=== PATIENT | female | born 1950 | race Caucasian/White ===

== ENCOUNTER 2019-07-10 21:30 | Emergency (ER) | payer MEDICARE, BC ==
--- OUTSIDE RECORDS SUMMARY | 2019-07-10 21:38 | XMS REPORT | Continuity of Care Document ---
:1950 External Reference #:[id number] Author Name Mae Garcia PA (transmitted by agent of provider Meagan Paul) Address [address] [place] [address] Care Team Providers Name Role Phone Susy Faria MD - Family Care Team Information Regional Hr Manager [facility] Care Team Information Regional Hr Manager [phone] Yobani Pisano MD - Anesthesiology Care Team Information Regional Hr Manager Miquel Mckinnon MD Care Team Information Regional Hr Manager [phone] Juancho Johnson MD - Neurology Care Team Information Regional Hr Manager [phone] [facility] Outpatient Nutrition Care Team Information Regional Hr Manager [phone] Problems Active Problems Provider Date Allergic rhinitis Elisabeth Emerson [facility] Onset: 11/28/2014 [facility]pharitis [facility]: 07/03/2014 Tear film insufficiency Elisabeth Emerson [facility] Onset: 10/24/2013 Migraine [facility] Onset: 09/06/2013 Cervical disc disorder Elisabeth Emerson [facility] Onset: 08/31/2013 Note: with UE radiculopathy 07/2017 Degenerative joint disease involving Elisabeth Emerson [facility] Onset: 2012 multiple joints Note: cervical/dorsal/lumbar, hip, knee Vitamin D deficiency Elisabeth Emerson [facility] Onset: 02/05/2013 Osteopenia Elisabeth Emerson [facility] Onset: 07/03/2014 Note: hips Hypothyroidism Susy Faria M.D. Onset: 10/22/2011 Hyperlipidemia Susy Faria M.D. Onset: 10/22/2011 Note: mild, variable Varicose veins of lower extremity [place]abeth, [facility] Onset: 07/22/2015 Irritable bowel syndrome [place] Elisabeth, [facility] Onset: 01/15/2014 Gastroesophageal reflux disease [place] Elisabeth, [facility] Onset: 08/22/2013 Lumbosacral radiculopathy [place] Elisabeth, [facility] Onset: 05/28/2016 Note: L5S1 L>R Idiopathic progressive polyneuropathy [place]ly[place]isabeth, [facility] Onset: 2015 Note: Lower ext EMG 2016 H/O: hypertension Elisabeth Emerson [facility] Onset: 08/26/2016 Low back pain Michel Triana M.D. Onset: 10/14/2016 Note: Post laminectomy syndrome Diverticular disease GenoaLyly rendonaremc [facility] Onset: 09/02/2017 Spondylolysis of cervical spine Florence Bustamante MD Onset: 12/28/2017 Essential hypertension [place] Elisabeth, [facility] Onset: 02/28/2018 Thrombocytopenic disorder [place] [facility] Onset: 02/28/2018 Atrial fibrillation Elisabeth Emerson [facility] Onset: 09/25/2018 Note: noted 06/2018, electrical cardioversion 09/2018 Dupuytren's contracture [facility] [facility] On[facility]: 11/24/2018 Note: (R) hand Urinary tract infectious disease Elena Oliver M.D. Onset: 03/08/2019 Mixed urinary incontinence Elena Oliver M.D. Onset: 03/08/2019 Social History Type Date Description Comments Sex Unknown Tobacco Use Start: Unknown End: Quit QUIT 1973 Unknown ETOH Use Occasionally consumes wine Tobacco Use Start: Unknown End: Patient is a former smoker Unknown Recreational Drug Use Denies Drug Use Smoking Status Reviewed: 06/19/19 Patient is a former smoker Allergies, Adverse Reactions, Alerts Active Allergies Reaction Severity Comments Date Erythromycin dyspepsia 2014 Latex 2014 Sulfa Antibiotics Urticaria 2014 Codeine cannot tolerate 2014 Erythromycin Hives 09/24/2018 Adhesives 05/15/2015 Betadine 05/15/2015 Benazepril cough 07/07/2015 Baclofen Toxic encephalopathy 09/03/2015 Oxycodone dizzy 02/28/2018 Tramadol Nausea and Vomiting 02/28/2018 Hydrocodone dizziness 02/28/2018 Oxycontin 09/12/2018 Medications Active Medications SIG Qnty Indications Ordering Date Provider Order Continue Sameer Montez, 11/13/2018 Physical therapy M.Marilin Flecainide Acetate take one tablet 180tabs Shilo Lopez MD 10/04/2018 50mg by mouth twice a Tablets day Xarelto 1 by mouth every 90tabs Shilo Lopez MD 09/12/2018 15mg Tablets day Levothyroxine Sodium Take 1 Tablet 90tabs Sameer Montez, 12/08/2016 100mcg Daily M.D. Tablets Sumatriptan Use One [place] 12units Sameer Montez, 10/26/2016 20mg/Act Nasally as M.D. Solution Needed For Migraine, May Repeat Once In 2 Hours If Not Relieved, Max Daily Dose 40 MG, May Not Use With Tablets Lyrica 1 tab by mouth 180caps G57.93 Sameer Montze, 300mg Capsules every 12 hours M.D. Bystolic Take 1 Tablet 90tabs [place], 10mg Tablets Daily AT Bedtime Mehdi Chapin M.D., FAC Cyclobenzaprine HCL 1 by daily prn Unknown 10mg for muscle Tablets spasms History Medications Nitrofurantoin Monohyd 1 by mouth 14caps Elena Oliver, 02/19/2019 - Macro twice a day M.D. 03/08/2019 100mg Capsules Immunizations CPT Code Status Date Vaccine Lot # 70216 Given 08/25/2010 flu vaccination 43219 Given 11/10/2009 Zoster Vaccine Live Injection 20678 Given 11/10/2009 flu vaccination 77322 Given 11/10/2009 H1N1 Immuniation Adminstration 51708 Given Unknown Tdap injection Vital Signs Date Vital Result Comment 06/19/2019 2:51pm BP Systolic Sitting Left Arm 145 mmHg BP Diastolic Sitting Left Arm 62 mmHg Heart Rate 68 /min Respiratory Rate 16 /min Height 68.5 inches 5'8.50" Weight 207.00 lb BMI (Body Mass Index) 31.0 kg/m2 BSA (Body Surface Area) 2.09 m2 [place] body weight in kilograms 65 kg O2 % BldC Oximetry 93 % Ra 05/24/2019 11:28am BP Systolic 126 mmHg BP Diastolic 80 mmHg Body Temperature 97.2 F Heart Rate 58 /min Respiratory Rate 17 /min Height 68.5 inches 5'8.50" Weight 192.00 lb BMI (Body Mass Index) 28.8 kg/m2 BSA (Body Surface Area) 2.02 m2 [place] body weight in kilograms 65 kg O2 % BldC Oximetry 95 % Pain Level 0 Results Test Date Facility Test Result H/L Range Note Ua RFX Micro & 05/24/2019 [facility] Urine Color YELLOW Yellow 1 Culture II [address] [place] [address] [phone] Urine Clarity CLEAR Clear Urine Glucose - Dipstick NEGATIVE mg/dL Negative Urine Bilirubin - Dipstick NEGATIVE Negative Urine Ketone NEGATIVE mg/dL Negative Urine Specific [place] 1.010 Normal 1.010-1.030 Urine Blood TRACE Negative Urine PH 6.0 Low 6.5-7.5 Urine Protein - Dipstick NEGATIVE mg/dL Negative Urine Urobilinogen - Dipstick 0.2 E.U./dL Normal 0.2-1.0 Urine Nitrite - Dipstick NEGATIVE Negative Urine Leuk Esterase NEGATIVE Negative Urine RBC NONE SEEN rbc/hpf 0-2 Urine WBC NONE SEEN wbc/hpf 0-7 Urine Epithelial Cells VERY FEW /lpf None Seen Source: URINE, CLEAN CAT <SEE NOTE> 2 Urine Dipstick 05/24/2019 [facility] Ua Color Yellow Yellow Ua Clarity Clear Clear Ua Leuko Neg Negative Ua Nitrite Neg Negative Ua Urobilinogen 0.2 0.2 - 1.0 E.U./dL Ua Protein Neg Negative Ua PH 6.0 Low 6.5-7.5 Ua Blood 10 [place]/uL High Negative Ua Specific [place] 1.020 1.010-1.030 Ua Ketones Neg Negative Ua Bilirubin Neg Negative Ua Glucose Neg Negative Ua RFX Micro & Culture 02/06/2019 [facility] Urine Color YELLOW Yellow II [address] [place] [address] [phone] Urine Clarity [place] Clear Urine Glucose - Dipstick NEGATIVE mg/dL Negative Urine Bilirubin - Dipstick NEGATIVE Negative Urine Ketone TRACE mg/dL High Negative Urine Specific [place] 1.020 Normal 1.010-1.030 Urine Blood NEGATIVE Negative Urine PH 6.0 Low 6.5-7.5 Urine Protein - Dipstick NEGATIVE mg/dL Negative Urine Urobilinogen - Dipstick 0.2 E.U./dL Normal 0.2-1.0 Urine Nitrite - Dipstick POSITIVE Abnormal Negative Urine Leuk Esterase NEGATIVE Negative Urine RBC NONE SEEN rbc/hpf 0-2 Urine WBC 2-5 wbc/hpf 0-7 Urine Epithelial Cells FEW /lpf None Seen Urine Bacteria MANY Abnormal None Seen Culture If 02/06/2019 [facility] Culture If CULTURE TO [address] Indicated FOLLO <[place] [address] Comment NOTE> [phone] Urine Culture 02/06/2019 [facility] Urine Culture ESBL Abnormal [address] [place] [address] <SEE NOTE> [phone] Quantity > 100,000 CFU/mL 5 Urine Culture MIXED URETHRAL F <SEE NOTE> 6 Quantity 10,000 - 50,000 <SEE NOTE> 7 Esbl Escherichia 02/06/2019 [facility] Nitrofurantoin <=16 Susceptible Coli [address] [place] [address] [phone] Trimethoprim/Sulfamethoxazole >=320 Resistant Ampicillin >=32 Resistant Cefazolin >=64 Resistant Ampicillin/Sulbactam 4 Susceptible Ciprofloxacin >=4 Resistant Piperacillin/Tazobactam <=4 Susceptible Ceftazidime 4 Resistant Ceftriaxone >=64 Resistant Cefepime 2 Resistant Levofloxacin >=8 Resistant Imipenem <=0.25 Susceptible Gentamicin <=1 Susceptible Tobramycin <=1 Susceptible Urine Dipstick 02/06/2019 [facility] Ua Color Yellow Yellow Ua Clarity Clear Clear Ua Leuko Negative Negative Ua Nitrite Positive Negative Ua Urobilinogen 0.2 0.2 - 1.0 E.U./dL Ua Protein 15 High Negative Ua PH 6.0 Low 6.5-7.5 Ua Blood 10 High Negative Ua Specific [place] 1.025 1.010-1.030 Ua Ketones Negative Negative Ua Bilirubin Negative Negative Ua Glucose Negative Negative 1 R31.21 2 URINE, CLEAN CATCH 3 CULTURE TO FOLLOW 4 ESBL ESCHERICHIA COLI 5 > 100,000 CFU/mL 6 MIXED URETHRAL MACARIO 7 10,000 - 50,000 CFU/mL Procedures Date Code Description Status 06/19/2019 90002 EKG-Tracing And Report Completed 05/24/2019 64761 Measurement Post Voiding Residual Urine By Completed Ultrasound,Non-Imaging 04/26/2019 19435 Doppler ECHO Color Flow Mapping Completed 04/26/2019 17634 Doppler Echocardiogram Complete Completed 04/26/2019 70536 Transesophageal Echocardiogram Completed 04/24/2019 77847 EKG-Tracing And Report Completed 02/06/2019 70814 Measurement Post Voiding Residual Urine By Completed Ultrasound,Non-Imaging 10/25/2018 [id number] Bone Mineral Density Test Completed 09/02/2017 77394637 Colonoscopy Completed 05/18/2017 80935885 Mammogram Completed Medical Devices Description No Information Available Encounters Type Date Location Provider Dx Diagnosis Office Visit 06/19/2019 Cardiology Office Shilo Lopez MD I48.0 Paroxysmal atrial 2:35p fibrillation Z95.9 Presence of cardiac and vascular implant and graft, unsp I10 Essential (primary) hypertension 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 Shilo Lopez MD 06/19/2019 I50.32 Chronic diastolic heart failure Shilo Lopez MD 05/24/2019 K59.00 Constipation, unspecified Mo Garcia PA 05/24/2019 N39.46 Mixed incontinence Mo Garcia PA 04/26/2019 I48.0 Paroxysmal atrial fibrillation Shilo Lopez MD 04/24/2019 I48.0 Paroxysmal atrial fibrillation Shilo Lopez MD 04/24/2019 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 03/08/2019 N39.46 Mixed incontinence Elena Oliver M.D. 02/06/2019 R31.21 Asymptomatic microscopic hematuria Mo Garcia PA 02/06/2019 N39.46 Mixed incontinence Mo Garcia PA Plan of Treatment Future Appointment(s):09/05/2019 11:30 am - Shilo Lopez MD at Cardiology [id number]/07/2019 10:00 am - Shilo Lopez MD Functional Status Functional Condition Comment Date Status Independent with all ADL's Active Mental Status Description No Information Available Referrals Refer to Dr Reason for Referral Status Appt Date [place], Ko Hassan M.D. ALFRED Patient is having CESARIO on Closed 04/27, will send CD and report as soon as it is available. [address] [place], [place] [address] [phone]
--- OUTSIDE RECORDS SUMMARY | 2019-07-10 21:38 | XMS REPORT | Continuity of Care Document ---
:1950 External Reference #:[id number] Author Name Deuce Shaver MD Address [address] [place] [address] Care Team Providers Name Role Phone Susy Faria MD - Family Care Team Information [facility] Care Team Information Dean Of Admissions [phone] Yobani Pisano MD - Anesthesiology Care Team Information Dean Of Admissions Miquel Mckinnon MD Care Team Information Dean Of Admissions [phone] Juancho Johnson MD - Neurology Care Team Information Dean Of Admissions [phone] [facility] Outpatient Nutrition Care Team Information Dean Of Admissions [phone] Problems Active Problems Provider Date Allergic rhinitis Elisabeth Emerson [facility] Onset: 11/28/2014 Blepharitis Elisabeth Emerson [facility] Onset: 07/03/2014 Tear film insufficiency Elisabeth Emerson [facility] Onset: 10/24/2013 Migraine Elisabeth Emerson [facility] Onset: 09/06/2013 Cervical disc disorder Elisabeth Emerson [facility] Onset: 08/31/2013 Note: with UE radiculopathy 07/2017 Degenerative joint disease involving Elisabeth Emerson [facility] Onset: 2012 multiple joints Note: cervical/dorsal/lumbar, hip, knee Vitamin D deficiency Elisabeth Emerson [facility] Onset: 02/05/2013 Osteopenia Elisabeth Emerson [facility] Onset: 07/03/2014 Note: hips Hypothyroidism Susy Faria M.D. Onset: 10/22/2011 Hyperlipidemia Susy Faria M.D. Onset: 10/22/2011 Note: mild, variable Varicose veins of lower extremity [place] rend[place] [facility] Onset: 07/22/2015 Irritable bowel syndrome [facility] Onset: 01/15/2014 Gastroesophageal reflux disease [facility] Onset: 08/22/2013 Lumbosacral radiculopathy [place] [facility]: 05/28/2016 Note: L5S1 L>R Idiopathic progressive polyneuropathy [place] [facility]: 2015 Note: Lower ext EMG 2015 H/O: hypertension [place] Elisabeth, [facility] Onset: 08/26/2016 Low back pain Michel Triana M.D. Onset: 10/14/2016 Note: Post laminectomy syndrome Diverticular disease [place] [facility] On[facility]: 09/02/2017 Spondylolysis of cervical spine Florence Bustamante MD Onset: 12/28/2017 Essential hypertension [place] [facility]: 02/28/2018 Thrombocytopenic disorder [place] [facility] Onset: 02/28/2018 Atrial fibrillation [place], [facility] Onset: 09/25/2018 Note: noted 06/2018, electrical cardioversion 09/2018 Dupuytren's contracture [place] [facility]set: 11/24/2018 Note: (R) hand Urinary tract [...] Use Denies Drug Use Smoking Status Reviewed: 07/04/19 Patient is a former smoker Exercise Type/Frequency Exercises regularly Allergies, Adverse Reactions, Alerts Active Allergies Reaction [...] 100mcg Daily M.D. Tablets Sumatriptan Use One [place] 12units Sameer Montez, 10/26/2016 20mg/Act Nasally as M.D. Solution Needed For Migraine, May Repeat Once In 2 Hours If Not Relieved, Max Daily Dose 40 MG, May Not Use With Tablets Lyrica 1 tab by mouth 180caps G57.93 Sameer Montez, 300mg Capsules every 12 hours M.D. Bystolic Take 1 Tablet 90tabs [place], 10mg Tablets Daily AT Bedtime Mehdi Chapin M.D., FAC Cyclobenzaprine HCL 1 by daily prn Unknown 10mg for muscle Tablets spasms History Medications Nitrofurantoin Monohyd 1 by mouth 14caps Elena Oliver, 02/19/2019 - Macro twice a day M.D. 03/08/2019 100mg Capsules Immunizations CPT Code Status Date Vaccine Lot # 13287 Given 08/25/2010 flu vaccination 02700 Given 11/10/2009 Zoster Vaccine Live Injection 05920 Given 11/10/2009 flu vaccination 29843 Given 11/10/2009 H1N1 Immuniation Adminstration 75455 Given Unknown Tdap injection Vital Signs Date Vital Result Comment 07/04/2019 1:34pm BP Systolic Sitting Left Arm 140 mmHg BP Diastolic Sitting Left Arm 100 mmHg Heart Rate 60 /min Respiratory Rate 20 /min Height 68.5 inches 5'8.50" [place] body weight in kilograms 65 kg O2 % BldC Oximetry 94 % ra 06/19/2019 2:51pm BP Systolic Sitting Left Arm 145 mmHg BP Diastolic Sitting Left Arm 62 mmHg Heart Rate 68 /min Respiratory Rate 16 /min Height 68.5 inches 5'8.50" Weight 207.00 lb BMI (Body Mass Index) 31.0 kg/m2 BSA (Body Surface Area) 2.09 m2 [place] body weight in kilograms 65 kg O2 % BldC Oximetry 93 % Ra Results Test Date Facility Test Result H/L Range Note Ua RFX Micro & 05/24/2019 [facility] Urine Color YELLOW Yellow 1 Culture II [address] [place] [address] [phone] Urine Clarity CLEAR Clear Urine Glucose - Dipstick NEGATIVE mg/dL Negative Urine Bilirubin - Dipstick NEGATIVE Negative Urine Ketone NEGATIVE mg/dL Negative Urine Specific [place] 1.010 Normal 1.010-1.030 Urine Blood TRACE Negative [...] CAT <SEE NOTE> 2 Urine Dipstick 05/24/2019 [facility] Ua Color Yellow Yellow Ua Clarity Clear Clear Ua Leuko Neg Negative Ua Nitrite Neg Negative Ua Urobilinogen 0.2 0.2 - 1.0 E.U./dL Ua Protein Neg Negative Ua PH 6.0 Low 6.5-7.5 Ua Blood 10 [place]/uL High Negative Ua Specific [place] 1.020 1.010-1.030 Ua Ketones Neg Negative Ua Bilirubin Neg Negative Ua Glucose Neg Negative Ua RFX Micro & Culture 02/06/2019 [facility] Urine Color YELLOW Yellow II [address] [place] [address] [phone] Urine Clarity [place] Clear Urine Glucose - Dipstick NEGATIVE mg/dL Negative Urine Bilirubin - Dipstick NEGATIVE Negative Urine Ketone TRACE mg/dL High Negative Urine Specific [place] 1.020 Normal 1.010-1.030 Urine Blood NEGATIVE Negative [...] MANY Abnormal None Seen Culture If 02/06/2019 [facility] Culture If CULTURE TO [address] Indicated [place]LLO <[place] [address] Comment NOTE> [phone] Urine Culture 02/06/2019 [facility] Urine Culture ESBL Abnormal [address] [place] [address] <SEE NOTE> [phone] Quantity > 100,000 CFU/mL 5 Urine Culture MIXED URETHRAL F <SEE NOTE> 6 Quantity 10,000 - 50,000 <SEE NOTE> 7 Esbl Escherichia 02/06/2019 [facility] Nitrofurantoin <=16 Susceptible Coli [address] [place] [address] [phone] Trimethoprim/Sulfamethoxazole >=320 Resistant Ampicillin >=32 Resistant Cefazolin [...] Ua Blood 10 High Negative Ua Specific [place] 1.025 1.010-1.030 Ua Ketones Negative Negative Ua Bilirubin Negative Negative Ua Glucose Negative Negative 1 R31.21 2 URINE, CLEAN CATCH 3 CULTURE TO FOLLOW 4 ESBL [place] COLI 5 > 100,000 CFU/mL 6 MIXED URETHRAL MACARIO 7 10,000 - 50,000 CFU/mL Procedures Date Code Description Status 06/19/2019 59711 EKG-Tracing And Report Completed 05/24/2019 50571 Measurement Post Voiding Residual Urine By Completed Ultrasound,Non-Imaging 04/26/2019 60790 Doppler ECHO Color Flow Mapping Completed 04/26/2019 99816 Doppler Echocardiogram Complete Completed 04/26/2019 85564 Transesophageal Echocardiogram Completed 04/24/2019 41421 EKG-Tracing And Report Completed 02/06/2019 76884 Measurement Post Voiding Residual Urine By Completed Ultrasound,Non-Imaging 10/25/2018 [id number] Bone Mineral Density Test Completed 09/02/2017 [id number] Colonoscopy Completed 05/18/2017 [id number] Mammogram Completed Medical Devices Description No Information Available Encounters Type Date Location Provider Dx Diagnosis Office Visit 06/19/2019 Cardiology Office Shilo Lopez MD I48.0 Paroxysmal atrial 2:35p fibrillation Z95.9 Presence of cardiac and vascular implant and graft, unsp I10 Essential (primary) hypertension Z79.01 [facility] (current) use of anticoagulants I50.32 Chronic diastolic (congestive) heart failure Office Visit 05/24/2019 11:15a Urology Mo Garcia K59.00 Constipation , R., PA unspecified N39.46 Mixed incontinence Office Visit 04/24/2019 11:15a Cardiology Office Shilo Lopez I48.0 Paroxysmal atrial MD fibrillation 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 infection, site not specified N39.46 Mixed incontinence Office Visit 02/06/2019 1:30p Urology Mo Garcia R31.21 Asymptomatic R., PA microscopic hematuria N39.46 Mixed incontinence Assessments Date Code Description Provider 07/04/2019 J44.9 Chronic obstructive pulmonary disease, Deuce Shaver MD unspecified 06/19/2019 I48.0 Paroxysmal atrial fibrillation Shilo Lopez MD 06/19/2019 Z95.9 Cardiac implant in situ Shilo Lopez MD 06/19/2019 I10 Essential (primary) hypertension Shilo Lopez MD 06/19/2019 Z79.01 [facility] (current) use of anticoagulants Shilo Lopez MD 06/19/2019 I50.32 Chronic diastolic heart failure Shilo Lopez MD 05/24/2019 K59.00 Constipation, unspecified Mo Garcia PA 05/24/2019 N39.46 Mixed incontinence Mo Garcia PA 04/26/2019 I48.0 Paroxysmal atrial fibrillation Shilo Lopez MD 04/24/2019 I48.0 Paroxysmal atrial fibrillation Shilo Lopez MD 04/24/2019 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 specified 03/08/2019 N39.46 Mixed incontinence Elena Oliver M.D. 02/06/2019 R31.21 Asymptomatic microscopic hematuria Mo Garcia PA 02/06/2019 N39.46 Mixed incontinence Mo Garcia PA Plan of Treatment Future Appointment(s):09/05/2019 11:30 am - Shilo Lopez MD at Cardiology [id number]/07/2019 10:00 am - Shilo Lopez MD Functional Status Functional Condition Comment Date Status Independent with all ADL's Active Mental Status Description No Information Available Referrals Refer to Dr Reason for Referral Status Appt Date [place], Ko Hassan M.D. WATCHMAN Patient is having CESARIO on Closed 04/27, will send CD and report as soon as it is available. [address] [place], [place] [address] [phone]
--- OUTSIDE RECORDS SUMMARY | 2019-07-10 21:38 | XMS REPORT | Continuity of Care Document ---
:1950 External Reference #:[id number] Author Name Mo Garcia PA Address [address] [place] [address] Care Team Providers Name Role Phone Susy Faria MD - Family Care Team Information Call Or Contact Centre Operator [phone] Medicine Elisabeth Emerson [facility] - Medical Care Team Information Call Or Contact Centre Operator Yobani Pisano MD - Anesthesiology Care Team Information Call Or Contact Centre Operator [phone] Miquel Mckinnon MD Care Team Information Call Or Contact Centre Operator [phone] Juancho Johnson MD - Neurology Care Team Information Call Or Contact Centre Operator [phone] [facility] Outpatient Nutrition Care Team Information Call Or Contact Centre Operator [phone] Problems Active Problems Provider Date Allergic rhinitis Elisabeth Emerson [facility] Onset: 11/28/2014 Blepharitis Elisabeth Emerson [facility] Onset: 07/03/2014 Tear film insufficiency Elisabeth Emerson [facility] Onset: 10/24/2013 Migraine Elisabeth Emerson [facility] Onset: 09/06/2013 Cervical disc disorder Elisabeth Emerson [facility] Onset: 08/31/2013 Note: with UE radiculopathy 07/2017 Degenerative joint disease involving Elisabeth Emerson [facility] Onset: 2012 multiple joints Note: cervical/dorsal/lumbar, hip, knee Vitamin D deficiency Elisabeth Emerson [facility] Onset: 02/05/2013 Osteopenia Elisabeth Emerson [facility] Onset: 07/03/2014 Note: hips Hypothyroidism Susy Faria M.D. Onset: 10/22/2011 Hyperlipidemia Susy Faria M.D. Onset: 10/22/2011 Note: mild, variable Varicose veins of lower extremity [place] Elisabeth, [facility] Onset: 07/22/2015 Irritable bowel syndrome [place] [facility] Onset: 01/15/2014 [facility]astroesophageal reflux disease [place] [facility]: 08/22/2013 Lumbosacral radiculopathy [place] [facility]: 05/28/2016 Note: L5S1 L>R Idiopathic progressive polyneuropathy [place] Elisabeth, [facility] Onset: 2015 Note: Lower ext EMG 2016 H/O: hypertension [place] Elisabeth, [facility] Onset: 08/26/2016 Low back pain Michel Triana M.D. Onset: 10/14/2016 Note: Post laminectomy syndrome [facility]verticular disease [place] [facility]: 09/02/2017 Spondylolysis of cervical spine Florence Bustamante MD Onset: 12/28/2017 Essential hypertension [place] [facility] Onset: 02/28/2018 Thrombocytopenic disorder [place] [facility]set: 02/28/2018 Atrial fibrillation [place] [facility] Onset: 09/25/2018 Note: noted 06/2018, electrical cardioversion 09/2018 Dupuytren's contracture [place] [facility] Onset: 11/24/2018 Note: (R) hand Urinary tract [...] Use Denies Drug Use Smoking Status Reviewed: 04/24/19 Patient is a former smoker Allergies, Adverse [...] Order Continue Sameer Montez, 11/13/2018 Physical therapy M.D. Flecainide Acetate take one tablet 180tabs Shilo Lopez MD 10/04/2018 50mg by mouth twice a Tablets day Xarelto 1 by mouth every 90tabs Shilo Lopez MD 09/12/2018 15mg Tablets day Levothyroxine Sodium Take 1 Tablet 90tabs Sameer Montez, 12/08/2016 100mcg Daily M.D. Tablets Sumatriptan Use One [place] 12units Sameer Montez, 10/26/2016 20mg/Act Nasally as M.D. Solution Needed For Migraine, May Repeat Once In 2 Hours If Not Relieved, Max Daily Dose 40 MG, May Not Use With Tablets Lyrica 1 tab by mouth 180caps G57.93 Sameer Montez, 300mg Capsules every 12 hours M.D. Bystolic Take 1 Tablet 90tabs [place], 10mg Tablets Daily AT Bedtime Mehdi Chapin M.D., [facility] Cyclobenzaprine HCL 1 by daily prn Unknown 10mg for muscle Tablets spasms History Medications Nitrofurantoin Monohyd 1 by mouth 14caps Elena Oliver, 02/19/2019 - Macro twice a day M.D. 03/08/2019 100mg Capsules Immunizations CPT Code Status Date Vaccine Lot # 31035 Given 08/25/2010 flu vaccination 53374 Given 11/10/2009 Zoster Vaccine Live Injection 34407 Given 11/10/2009 flu vaccination 84909 Given 11/10/2009 H1N1 Immuniation Adminstration 37497 Given Unknown Tdap injection Vital Signs Date Vital Result Comment 05/24/2019 11:28am BP Systolic 126 mmHg BP Diastolic 80 mmHg Body Temperature 97.2 F Heart Rate 58 /min Respiratory Rate 17 /min Height 68.5 inches 5'8.50" Weight 192.00 lb BMI (Body Mass Index) 28.8 kg/m2 BSA (Body Surface Area) 2.02 m2 [place] body weight in kilograms 65 kg O2 % BldC Oximetry 95 % Pain Level 0 04/24/2019 11:46am BP Systolic Sitting Left Arm 138 mmHg BP Diastolic Sitting Left Arm 82 mmHg Heart Rate 62 /min Respiratory Rate 16 /min Height 68 inches 5'8" [place] body weight in kilograms 63 kg O2 Saturation Level with Exercise 96 % Results Test Date Facility Test Result H/L Range Note Urine Dipstick 05/24/2019 [facility] Ua Color Yellow Yellow Ua Clarity Clear Clear Ua Leuko Neg Negative Ua Nitrite Neg Negative Ua Urobilinogen 0.2 0.2 - 1.0 E.U./dL Ua Protein Neg Negative Ua PH 6.0 Low 6.5-7.5 Ua Blood 10 [place]/uL High Negative Ua Specific [place] 1.020 1.010-1.030 Ua Ketones Neg Negative Ua Bilirubin Neg Negative Ua Glucose Neg Negative Ua RFX Micro & Culture 02/06/2019 [facility] Urine Color YELLOW Yellow II [address] [place], [place] [id number] [phone] Urine Clarity SL CLOUDY Clear Urine Glucose - Dipstick NEGATIVE mg/dL Negative Urine Bilirubin - Dipstick NEGATIVE Negative Urine Ketone TRACE mg/dL High Negative Urine Specific [place] 1.020 Normal 1.010-1.030 Urine Blood NEGATIVE Negative [...] MANY Abnormal None Seen Culture If 02/06/2019 [facility] Culture If CULTURE TO [address] Indicated [place] <[place] [address] Comment NOTE> [phone] Urine Culture 02/06/2019 [facility] Urine Culture ESBL Abnormal [address] [place] [address] <SEE NOTE> [phone] Quantity > 100,000 CFU/mL 3 Urine Culture MIXED URETHRAL F <SEE NOTE> 4 Quantity 10,000 - 50,000 <SEE NOTE> 5 Esbl Escherichia 02/06/2019 [facility] Nitrofurantoin <=16 Susceptible Coli [address] [place] [address] [phone] Trimethoprim/Sulfamethoxazole >=320 Resistant Ampicillin >=32 Resistant Cefazolin [...] Ua Blood 10 High Negative Ua Specific [place] 1.025 1.010-1.030 Ua Ketones Negative Negative Ua Bilirubin Negative Negative Ua Glucose Negative Negative 1 CULTURE TO FOLLOW 2 ESBL ESCHERICHIA COLI 3 > 100,000 CFU/mL 4 MIXED URETHRAL MAC[place]IO 5 10,000 - 50,000 CFU/mL Procedures Date Code Description Status 04/26/2019 68813 Doppler ECHO Color Flow Mapping Completed 04/26/2019 19047 Doppler Echocardiogram Complete Completed 04/26/2019 23847 Transesophageal Echocardiogram Completed 04/24/2019 31589 EKG-Tracing And Report Completed 02/06/2019 38948 Measurement Post Voiding Residual Urine By Completed Ultrasound,Non-Imaging 12/13/2018 51993 EKG-Tracing And Report Completed 10/25/2018 089051532 Bone Mineral Density Test Completed 09/02/2017 96854815 Colonoscopy Completed 05/18/2017 67870353 Mammogram Completed Medical Devices Description No Information Available Encounters Type Date Location Provider Dx Diagnosis Office Visit 05/24/2019 Urology Mo Garcia, K59.00 Constipation, 11:15a PA unspecified N39.46 Mixed incontinence Office Visit 04/24/2019 11:15a Cardiology Office Shilo Lopez, I48.0 Paroxysmal atrial MD fibrillation Z79.01 correction (current) use of anticoagulants I50.32 Chronic diastolic (congestive) heart failure I10 Essential (primary) hypertension Office Visit 03/08/2019 3:15p Urology Elena Oliver N39.0 Urinary tract M.D. infection, site not specified N39.46 Mixed incontinence Office Visit 02/06/2019 1:30p Urology Mo Garcia R31.21 Asymptomatic R., PA microscopic hematuria N39.46 Mixed incontinence Office Visit 12/13/2018 3:00p Cardiology Office Shilo Lopez I48.0 Paroxysmal atrial MD fibrillation Z79.01 chemical pumper (current) use of anticoagulants R60.0 Localized edema Assessments Date Code Description Provider 05/24/2019 K59.00 Constipation, unspecified Mo Garcia PA 05/24/2019 N39.46 Mixed incontinence Mo Garcia PA 04/26/2019 I48.0 Paroxysmal atrial fibrillation Shilo Lopez MD 04/24/2019 I48.0 Paroxysmal atrial fibrillation Shilo Lopez MD 04/24/2019 Z79.01 chemical pumper (current) use of anticoagulants Shilo Lopez MD 04/24/2019 I50.32 Chronic diastolic (congestive) heart failure Shilo Lopez MD 04/24/2019 I10 Essential (primary) hypertension Shilo Lopez MD 03/08/2019 N39.0 Urinary tract infection, site not specified Elena Oliver M.D. 03/08/2019 N39.46 Mixed incontinence Elena Oliver M.D. 02/06/2019 R31.21 Asymptomatic microscopic hematuria Mo Garcia PA 02/06/2019 N39.46 Mixed incontinence Mo Garcia PA 12/13/2018 I48.0 Paroxysmal atrial fibrillation Shilo Lopez MD 12/13/2018 Z79.01 chemical pumper (current) use of anticoagulants Shilo Lopez MD 12/13/2018 R60.0 Localized edema Shilo Lopez MD Plan of Treatment Future Appointment(s):07/24/2019 11:00 am - Mo Garcia PA at Urology Functional Status Functional Condition Comment Date Status Independent with all ADL's Active Mental Status Description No Information Available Referrals Refer to Reason for Referral Status Appt Date [place], Ko Hassan M.D. ALFRED Patient is having CESARIO on Closed 04/27, will send CD and report as soon as it is available. [address], [place] [address] [phone]
[2019-07-10 21:46] VITALS: BP 174/98
--- NOTE | 2019-07-10 22:25 | UC ---
Skin Complaint HPI - HPI Summary HPI Summary: 68-year-old woman comes in with a chief complaint of bleeding shave biopsy wound on the left leg. Patient is on Xarelto. The shave biopsy was done this afternoon. Patient had a dressing on it from the station tender and it started to bleed another dressing on it and that started to bleed then she put a pressure dressing and the bleeding is stopped. Feels well otherwise. - History of Current Complaint Chief Complaint: UCSkin Time Seen by Provider: 07/10/19 22:09 Stated Complaint: LT LEG OPEN WOUND Pain Intensity: 0 - Allergy/Home Medications Allergies/Adverse Reactions: Allergies Allergy/AdvReac Type Severity Reaction Status Date / Time Adhesive Tape Allergy Itching, Verified 08/11/17 09:16 Rash erythromycin base Allergy See Comment Verified 07/10/19 22:04 latex Allergy Itching Verified 07/10/19 22:04 MS Povidone Iodine Allergy Itching Verified 08/11/17 09:16 [From Betadine] Sulfa (Sulfonamide Allergy Hives Verified 07/10/19 22:04 Antibiotics) clarithromycin [From Biaxin] AdvReac See Comment Verified 07/10/19 22:01 Home Medications: Home Medications Flecainide TAB* [Tambocor TAB*] 50 mg PO BID 07/10/19 [History Confirmed ] Nebivolol HCl [Bystolic] 10 mg PO BEDTIME 07/10/19 [History Confirmed 07/10/19] Pregabalin CAP(*) [Lyrica CAP(*)] 300 mg PO BID 07/10/19 [History Confirmed ] Rivaroxaban TAB(*) [Xarelto 15 mg(*)] 15 mg PO DAILY 07/10/19 [History Confirmed 07/10/19] PMH/Surg Hx/FS Hx/Imm Hx Previously Healthy: Yes Endocrine History: Hypothyroidism Cardiovascular History: Atrial Fibrillation - Surgical History Surgical History: Yes Surgery Procedure, Year, and Place: RT hip replacement. NILSON fundoplication X 's redone,. Right shoulder replacement,. lt foot surgery hammertoe and arch surgery,. LUMBAR SURGERY - L4-5, 08/15/15. BROKE TIBIAL PLATEAU RIGHT 02/2017 - Family History Known Family History: Positive: Non-Contributory - Social History Alcohol Use: Occasionally Substance Use Type: None Smoking Status (MU): Former Smoker - Immunization History Most Recent Influenza Vaccination: no Most Recent Tetanus Shot: WITHIN 10 YEARS Review of Systems All Other Systems Reviewed And Are Negative: Yes Constitutional: Positive: Negative Skin: Positive: Other - SEE HPI Eyes: Positive: Negative ENT: Positive: Negative Respiratory: Positive: Negative Cardiovascular: Positive: Negative Gastrointestinal: Positive: Negative Motor: Positive: Negative Neurovascular: Positive: Negative Musculoskeletal: Positive: Negative Neurological: Positive: Negative Psychological: Positive: Negative Is Patient Immunocompromised?: No Physical Exam Triage Information Reviewed: Yes Appearance: Well-Appearing, No Pain Distress, Well-Nourished Vital Signs: Initial Vital Signs Temp 98.3 F 07/10/19 21:40 Pulse 70 07/10/19 21:40 Resp 16 07/10/19 21:40 BP 174/98 07/10/19 21:40 Pulse Ox 92 07/10/19 21:40 Vital Signs Reviewed: Yes Eye Exam: Normal Eyes: Positive: Conjunctiva Clear Neck: Positive: Supple Respiratory: Positive: No respiratory distress Musculoskeletal: Positive: Strength Intact, ROM Intact Neurological: Positive: Alert Psychological: Positive: Age Appropriate Behavior Skin: Positive: Other - On the left calf there is a 1 cm shave biopsy with some ecchymosis there is no bleeding at this time. Course/Dx - Course Course Of Treatment: No bleeding in clinic. Pressure dressing was placed by nursing. Plan is to keep the pressure dressing and elevated and get reevaluated if worse request concerns. - Diagnoses Provider Diagnosis: Laceration of leg Discharge ED - Sign-Out/Discharge Documenting (check all that apply): Patient Departure All imaging exams completed and their final reports reviewed: No Studies - Discharge Plan Condition: Stable Disposition: HOME Patient Education Materials: Laceration Without Closure (ED) Referrals: Elisabeth Emerson PA [Primary Care Provider] - Additional Instructions: FOLLOW UP WITH YOUR DOCTOR IF NOT COMPLETELY IMPROVED. If there is any further bleeding applied direct pressure and elevate the extremity seek reevaluation if he cannot stop the bleeding. GET RECHECKED SOONER IF WORSE OR ANY QUESTIONS OR CONCERNS. - Billing Disposition and Condition Condition: STABLE Disposition: Home
== END 2019-07-10 22:31 | disposition home or self-care (01) ==
LOC: UCCORT 21:30
DX: L76.21 Postprocedural hemorrhage of skin and subcutaneous tissue following a dermatologic procedure (principal); I48.91 Unspecified atrial fibrillation; Z79.01 Long term (current) use of anticoagulants; Z96.641 Presence of right artificial hip joint; Z96.611 Presence of right artificial shoulder joint; Z88.1 Allergy status to other antibiotic agents; Z91.040 Latex allergy status; Z88.2 Allergy status to sulfonamides; Z91.048 Other nonmedicinal substance allergy status; Z87.891 Personal history of nicotine dependence
CPT/HCPCS: 99211; G0463

== ENCOUNTER 2019-08-23 12:05 | Day surgery (SDC) | payer MEDICARE, BC ==
[~2019-08-23 12:05] MED LIST: Bupivacaine 0.5% SDV PF* 30ML VIAL ONE; Sodium Bicarbonate 8.4% IV* 50 ML VIAL ONE
[2019-08-23 14:27] VITALS: BP 146/88
--- NOTE | 2019-08-23 20:40 | OP ---
DATE OF OPERATION: 08/23/19 [facility] DATE OF : 46 SURGEON: Judson Carr MD. HOLLOW TILE PARTITION ERECTOR: ANGELITA Del Valle. ANESTHESIOLOGIST: None. ANESTHESIA: Local only with 0.25% plain Marcaine. PRE-OP DIAGNOSIS: Left dorsal hand mass. POST-OP DIAGNOSIS: Left dorsal hand mass. OPERATIVE PROCEDURE: Excision, left dorsal hand mass. INDICATIONS: Ms. Jerry is 68. She has a hand mass that is symptomatic. We talked about treatment options and she had wanted to proceed. ESTIMATED BLOOD LOSS: 2 mL. COMPLICATIONS: None. FINDINGS: See above and below. DESCRIPTION OF PROCEDURE: She was seen in the preoperative holding area. The correct site, side, and procedure were identified. We came back to the operating room, the arm was prepped and draped in the usual fashion. I had injected the operative site with 0.25% plain Marcaine. A time-out was performed. The arm was exsanguinated and the forearm tourniquet inflated to 200 mmHg. I made a 1-cm incision over the dorsum of the hand just radial to the second metacarpal base. Dissection was carried down. There was a firm nodule that was adherent and just under the fascia at the dorsum of the hand. I used the [place] blade to excise this. Once I excised, we hand it off as specimen. I examined. She has a dorsal boss on the base of the second metacarpal but that was not the issue, the issue was this firm nodule. So I went ahead and left the dorsal boss alone. The wound was irrigated out. Skin was closed with 4-0 nylon suture. Soft dressing was applied and she was taken to the recovery room in stable condition. [id number]/[facility] #: [id number] MTDD
== END 2019-08-23 14:25 | disposition home or self-care (01) ==
LOC: OREAST 12:05
PROVIDERS: ATTEND Orthopaedic Surgery Hand Surgery
DX: D17.9 Benign lipomatous neoplasm, unspecified (principal); M19.90 Unspecified osteoarthritis, unspecified site; E03.9 Hypothyroidism, unspecified; I10 Essential (primary) hypertension; E88.1 Lipodystrophy, not elsewhere classified; Z87.891 Personal history of nicotine dependence; D69.6 Thrombocytopenia, unspecified
CPT/HCPCS: 88304; J3490